=== PATIENT | female | born 1930 | race Caucasian/White ===

== ENCOUNTER 2019-07-19 13:50 | Emergency (ER) | payer MEDICARE, BC ==
[~2019-07-19] VITALS: Ht 160 cm; Wt 56.8 kg
[~2019-07-19 13:50] MED LIST: DICY10CA88 PO; ESTR0.3T26 PO; HYDR12.522 PO; LOSA1TAB36 PO; METH10CP PO; ROSU10TA2 PO; SYN0.075T PO; VAL5T PO
--- NOTE | 2019-07-19 14:38 | NUR ---
Maximus Patrick, r [facility] called asking if pt was being dc'd as he received a call from a family member to that effect. After obtaining verbal pt permission, explained pt was not ready for dc at this time.
[2019-07-19] MEDS ORDERED: LIDOcaine 1% W/epiNEPHrine 1:200,000 10ml vial IJ ONE (14:45)
[2019-07-19 15:17] VITALS: BP 225/122
--- NOTE | 2019-07-19 15:28 | NUR ---
enrrique brandon engaged in lac repair
--- NOTE | 2019-07-19 15:38 | NUR ---
called Thai Foy,[phone] to have pt picked up, I was told they would call family to come and pick her up
== END 2019-07-19 16:52 | disposition home or self-care (01) ==
LOC: ER 13:50
DX: S01.81XA Laceration without foreign body of other part of head, initial encounter (principal); S16.1XXA Strain of muscle, fascia and tendon at neck level, initial encounter; M54.2 Cervicalgia; R23.3 Spontaneous ecchymoses; I10 Essential (primary) hypertension; Z79.899 Other long term (current) drug therapy; W19.XXXA Unspecified fall, initial encounter; Y93.89 Activity, other specified; Y92.89 Other specified places as the place of occurrence of the external cause; Y99.8 Other external cause status
CPT/HCPCS: 12013; 70450; 72125; 93005; 99285